=== PATIENT | male | born 1955 | race Caucasian/White ===

== ENCOUNTER → 2018-03-03 16:33 | Outpatient (CLI) | payer MEDICAID ==
[~2018-03-03 16:33] MED LIST: ALEVE220 MG PO; ASPERCREME 5 OZ5 OZ TOPICAL; AXIRON30 MG/1.5; CYCLOBENZAPRINE10 MG PO; CYMBALTA30 MG PO; ELIQUIS2.5 MG PO; FLUTICASONE PRO16 GM NASAL; MOBIC7.5 MG PO; NASACORT10.8 ML NASAL; NORCO 7.5/325 T1 TA1 PO; OXYCODONE-APAP1 TAB PO; SYNTHROID50 MCG PO; VENTOLIN HFA18 GM INH; XALATAN 0.0052.5 ML EACH EYE; ZESTRIL40 MG PO; ZYLOPRIM300 MG PO; ZYRTEC10 MG PO
[2018-03-29 11:04] VITALS: BMI 32.0
== END | disposition home or self-care (01) ==
LOC: D.LABREF 16:33
DX: M17.11 Unilateral primary osteoarthritis, right knee (principal); Z11.8 Encounter for screening for other infectious and parasitic diseases

== ENCOUNTER 2018-03-23 10:00 | Inpatient (IN) | payer MEDICAID ==
[~2018-03-23] VITALS: Ht 172.7 cm; Wt 95.7 kg
--- NOTE | ~2018-03-23 | MORECARE ---
CASE MANAGEMENT DISCHARGE SUMMARY PATIENT: DESI MCMANUS UNIT: [id number] ADM DATE: 03/28/18 AGE: 62 : 54 SEX: M ROOM/BED: D.2210 AUTHOR: SILVINO,DOC PHYSICIAN: REFERRING PHYSICIAN: TALON LEWIS MD DATE OF SERVICE: 03/30/18 Discharge Plan Patient Name: DESI MCMANUS Facility: [facility]:[place] : 1955 Planned Disposition: Home Anticipated Discharge Date: Discharge Date: Expected LOS: Initial Reviewer: [email or web address] Initial Review Date: 03/28/2018 Generated: 03/30/18 11:25 am Comments DCP- Discharge Planning Updated by [email or web address]: Stacy Watson on 03/30/18 9:[address] Patient is discharging home today. OTR COMPANY DRIVER, BSC, and walker will be delivered to patient by [employer]. I spoke with Ronna. Patient is set up for OP PT at [facility] . Patient's first appointment is for WednesdayApr 01 at 8:30 am. Script for PT is given to patient and I also faxed to them. I spoke with Staci. CM will continue to follow and assist with DC planning. DCP- Discharge Planning Updated by [email or web address]: Stacy Watson on 03/29/18 3:[address] Patient Name: DESI MCMANUS Admission Status: Elective Accout number: [id number] Admission Date: 03-28-2018 : 1955 Admission Diagnosis: Attending: TALON LEWIS Current LOS: 1 Anticipated DC Date: Planned Disposition: Home [place] Insurance: [place] PRIVATE OPT[place] [facility] Discharge Planning Comments: CM met with patient to assess discharge planning needs. Patient lives in [place]. His will be the one to drive him home. He plans on doing out patient rehab at [facility] [phone] He is currently a patient there. He will need a CPM, Walker and BSC when he is discharged home. There are 4 steps to enter in his home. CM will continue to follow and assist with DC planning needs. Marble Coper: Stacy Watson DCPIA - Discharge Planning Initial Assessment Updated by [email or web address]: Stacy Watson on 03/29/18 4:02 pm * Is the patient Alert and Oriented? Yes * How many steps to enter\exit or inside your home? * PCP Bebeto Gandara ([place]) * Pharmacy [facility] * Preadmission Environment Home with Family * ADLs Independent * Equipment None * List name and contact numbers for known caregivers / representatives who currently or will assist patient after discharge: RAEANN MCMANUS [phone] * Verbal permission to speak to the caregivers and representatives has been obtained from the patient. Yes * Community resources currently utilized None * Additional services required to return to the preadmission environment? Yes * Can the patient safely return to the preadmission environment? Yes * Has this patient been hospitalized within the prior 30 days at any hospital? No Last DP export: 03/29/18 3:12 p Patient Name: DESI MCMANUS Page 87420 at 1025 All edits/amendments must be made on the electronic document DICTATION DATE: 03/30/18 1025 HISTOTECHNOLOGIST SUPERVISOR: CHRIST 03/30/18 1025 RPT#: [id number] DC DATE: STATUS: ADM IN [facility] [address] [place] [address] END OF REPORT
--- NOTE | ~2018-03-23 | MORECARE ---
CASE MANAGEMENT DISCHARGE SUMMARY PATIENT: DESI MCMANUS UNIT: [id number] ADM DATE: 03/28/18 AGE: 62 : 53 SEX: M ROOM/BED: D.2210 AUTHOR: CRISTINE DUBOIS PHYSICIAN: REFERRING PHYSICIAN: TALON LEWIS MD DATE OF SERVICE: 03/29/18 Discharge Plan Patient Name: DESI MCMANUS [facility] [facility] 1955 Planned Disposition: Home Anticipated Discharge Date: Discharge Date: Expected LOS: Initial Reviewer: [email or web address] Initial Review Date: 03/28/2018 Generated: 03/29/18 5:02 pm DCPIA - Discharge Planning Initial Assessment Updated by [email or web address]: Stacy Watson on 03/29/18 4:02 pm * Is the patient Alert and Oriented? Yes * How many steps to enter\exit or inside your home? * PCP Bebeto Gandara ([place]) * Pharmacy [facility] * Preadmission Environment Home with Family * ADLs Independent * Equipment None * List name and contact numbers for known caregivers / representatives who currently or will assist patient after discharge: RAEANN MCMANUS [phone] * Verbal permission to speak to the caregivers and representatives has been obtained from the patient. Yes * Community resources currently utilized None * Additional services required to return to the preadmission environment? Yes * Can the patient safely return to the preadmission environment? Yes * Has this patient been hospitalized within the prior 30 days at any hospital? No Patient Name: DESI MCMANUS Page 51617 at 1602 All edits/amendments must be made on the electronic document DICTATION DATE: 03/29/18 1602 BEHAVIORAL SPECIALIST: CHRIST 03/29/18 1602 RPT#: [id number] DC DATE: STATUS: ADM IN [facility] [address] [place] [address] END OF REPORT
--- NOTE | ~2018-03-23 | MORECARE ---
CASE MANAGEMENT DISCHARGE SUMMARY PATIENT: DESI MCMANUS UNIT: [id number] ADM DATE: 03/28/18 AGE: 62 : 53 SEX: M ROOM/BED: D.2210 AUTHOR: SILVINO,DOC PHYSICIAN: REFERRING PHYSICIAN: TALON LEWIS MD DATE OF SERVICE: 04/04/18 Discharge Plan Patient Name: DESI MCMANUS Facility: [facility]:[place] : 1955 Planned Disposition: Home Anticipated Discharge Date: Discharge Date: 03/30/2018 Expected LOS: 0 Initial Reviewer: [email or web address] Initial Review Date: 03/28/2018 Generated: 04/04/18 10:24 am Comments DCP- Discharge Planning Updated by [email or web address]: Stacy Watson on 03/30/18 9:[address] Patient is discharging home today. WELDING EQUIPMENT REPAIRER SUPERVISOR, BSC, and walker will be delivered to patient by [employer]. I spoke with Ronna. Patient is set up for OP PT at [facility] . Patient's first appointment is for WednesdayApr 01 at 8:30 am. Script for PT is given to patient and I also faxed to them. I spoke with Staci. CM will continue to follow and assist with DC planning. DCP- Discharge Planning Updated by [email or web address]: Stacy Watson on 03/29/18 3:[address] Patient Name: DESI MCMANUS Admission Status: Elective Accout number: [id number] Admission Date: 03-28-2018 : 1955 Admission Diagnosis: Attending: TALON LEWIS Current LOS: 1 Anticipated DC Date: Planned Disposition: Home Primary Insurance: [place] PRIVATE OPTIONS [place] Discharge Planning Comments: CM met with patient to assess discharge planning needs. Patient lives in [place]. His will be the one to drive him home. He plans on doing out patient rehab at [facility] [phone] He is currently a patient there. He will need a CPM, Walker and BSC when he is discharged home. There are 4 steps to enter in his home. CM will continue to follow and assist with DC planning needs. Loading Inspector: Stacy Watson DCPIA - Discharge Planning Initial Assessment Updated by [email or web address]: Stacy Watson on 03/29/18 4:02 pm * Is the patient Alert and Oriented? Yes * How many steps to enter\exit or inside your home? * PCP Bbeeto Gandara ([place]) * Pharmacy [facility] * Preadmission Environment Home with Family * ADLs Independent * Equipment None * List name and contact numbers for known caregivers / representatives who currently or will assist patient after discharge: RAEANN MCMANUS [phone] * Verbal permission to speak to the caregivers and representatives has been obtained from the patient. Yes * Community resources currently utilized None * Additional services required to return to the preadmission environment? Yes * Can the patient safely return to the preadmission environment? Yes * Has this patient been hospitalized within the prior 30 days at any hospital? No Last DP export: 03/30/18 9:25 a Patient Name: DESI MCMANUS Page 02162 at 0924 All edits/amendments must be made on the electronic document DICTATION DATE: 04/04/18922 ORGAN PIPE MAKER METAL: CHRIST 04/04/18922 RPT#: [id number] DC DATE:03/30/18 STATUS: DIS IN [facility] [address] [place] [address] END OF REPORT
--- NOTE | ~2018-03-23 | OP ---
PATIENT NAME: DESI MCMANUS MEDICAL RECORD: [id number] :53 LOCATION:D.MS [address]10 ADMISSION DATE:03/28/18 SURGEON: TALON LEWIS MD DATE OF OPERATION: 03/28/2018 PREOPERATIVE DIAGNOSIS: Degenerative arthritis, right knee. POSTOPERATIVE DIAGNOSIS: Degenerative arthritis, right knee. PROCEDURE: Right total knee arthroplasty. SURGEON: Talon Lewis MD DRILLER'S ASSISTANT: Bruce Decker APN INTRAOPERATIVE COMPLICATIONS: None. SUMMARY OF PATHOLOGIC FINDINGS: The patient had basically bicompartmental osteoarthritis with full thickness articular surface defects on both medial and lateral femoral condyle. Patellofemoral joint was clean; however, the patella was not resurfaced. IMPLANTS USED: Maxwell triathlon total knee arthroplasty size 6, press fit distal femur size 5, press fit tibial component size 9, X3 polyethylene weightbearing insert. OPERATIVE SUMMARY IN DETAIL: After obtaining the appropriate preoperative orthopedic surgery consent as well as anesthetic consultation, evaluation and clearance, the patient was brought to the operating room and placed on the operating room table in supine position. After general laryngeal mask airway was administered, tourniquet was placed over the proximal aspect of the right lower extremity. Right lower extremity was then prepped and draped in routine sterile fashion. The leg was elevated and exsanguinated and the tourniquet was inflated to 350 mmHg. Midline incision was taken down for paramedian arthrotomy. Patella was everted. Soft tissue excision was done in the usual fashion as part of the case, which was done by Bruce Decker APN. Distal intramedullary guide hole was created followed by a distal femoral cut. This was then followed by complete exposure of the proximal tibia. Further soft tissue was followed by intramedullary guided cut of the proximal tibia. Appropriate measurements were taken. Chamfer cuts were made. Having completed the chamfer cuts, final trials were put into place, taken through range of motion that corresponded to the above final implants. Final distal femoral preparations were made followed by a final proximal tibial preparations. Copious irrigation was followed by implantation of the press-fit tibia and polyethylene and the press-fit femur. The knee was taken through range of motion and found to be stable in flexion, extension as well as mid flexion with good patellar tracking. Further irrigation was followed by closure by Bruce Decker APN including the paramedian arthrotomy with #2 Ethibond followed by #1 Vicryl, 2-0 Vicryl and skin lola. Sterile dressings were applied. Please note that in the knee prior to final closure was placed a gram of vancomycin, a gram of tobramycin, and TXA. All final needle and sponge counts were correct. TRANSINT:[id number] Voice Confirmation ID: [id number] DOCUMENT ID: [id number] OPERATIVE REPORT [id number] DESI MCMANUS MD, TALON THOMAS at 1305 CC: [id number] DICTATION DATE: 03/28/18 0908 VETERANS SERVICE OFFICER: 03/28/18 1029 ADM IN [facility] [address] [place] [address]
--- NOTE | ~2018-03-23 | MORECARE ---
CASE MANAGEMENT DISCHARGE SUMMARY PATIENT: DESI MCMANUS UNIT: [id number] ADM DATE: 03/28/18 AGE: 62 : 53 SEX: M ROOM/BED: D.2210 AUTHOR: SILVINO,DOC PHYSICIAN: REFERRING PHYSICIAN: TALON LEWIS MD DATE OF SERVICE: 03/29/18 Discharge Plan Patient Name: DESI MCMANUS Facility: [facility]:[place] : 1955 Planned Disposition: Home Anticipated Discharge Date: Discharge Date: Expected LOS: Initial Reviewer: [email or web address] Initial Review Date: 03/28/2018 Generated: 03/29/18 5:12 pm Comments DCP- Discharge Planning Updated by [email or web address]: Stacy Watson on 03/29/18 3:[address] Patient Name: DESI MCMANUS Admission Status: Elective Accout number: [id number] Admission Date: 03-28-2018 : 1955 Admission Diagnosis: Attending: TALON LEWIS Current LOS: 1 Anticipated DC Date: Planned Disposition: Home Primary Insurance: [place] PRIVATE OPTIONS [place] Discharge Planning Comments: CM met with patient to assess discharge planning needs. Patient lives in [place]. His will be the one to drive him home. He plans on doing out patient rehab at [facility] [phone] He is currently a patient there. He will need a CPM, Walker and BSC when he is discharged home. There are 4 steps to enter in his home. CM will continue to follow and assist with DC planning needs. Bessemer Regulator: Stacy Watson DCPIA - Discharge Planning Initial Assessment Updated by [email or web address]: Stacy Watson on 03/29/18 4:02 pm * Is the patient Alert and Oriented? Yes * How many steps to enter\exit or inside your home? * PCP Bebeto Gandara ([place]) * Pharmacy [facility] * Preadmission Environment Home with Family * ADLs Independent * Equipment None * List name and contact numbers for known caregivers / representatives who currently or will assist patient after discharge: RAEANN MCMANUS [phone] * Verbal permission to speak to the caregivers and representatives has been obtained from the patient. Yes * Community resources currently utilized None * Additional services required to return to the preadmission environment? Yes * Can the patient safely return to the preadmission environment? Yes * Has this patient been hospitalized within the prior 30 days at any hospital? No Last DP export: 03/29/18 3:02 p Patient Name: DESI MCMANUS Page 15101 at 1612 All edits/amendments must be made on the electronic document DICTATION DATE: 03/29/181610 CABLE TELEVISION INSTALLER: CHRIST 03/29/181610 RPT#: [id number] DC DATE: STATUS: ADM IN [facility] [address] [place] [address] END OF REPORT
[~2018-03-23 10:00] MED LIST changes: -ELIQUIS2.5 MG PO; -OXYCODONE-APAP1 TAB PO
[2018-03-23 11:52] LABS: APPEARANCE CLEAR (CLEAR); BILIRUBIN NEGATIVE (NEGATIVE); COLOR YELLOW (YELLOW); GLUCOSE 250 mg/dL (NEGATIVE); KETONE SMALL mg/dL (NEGATIVE); NITRITE NEGATIVE (NEGATIVE); PROTEIN NEGATIVE (NEGATIVE); SPECIFIC GRAVITY 1.015 (1.005-1.020)
[2018-03-23 11:53] LABS: BASOPHILS 0.5 % (0-2); EOSINOPHILS 4.9 % (0-7); HEMATOCRIT 50.9 % (42.0-54.0); HEMOGLOBIN 16.7 g/dL (13.5-17.5); IMMATURE GRANULOCYTES 0.3 % (0-5); LYMPHOCYTES 23.8 % (15-50); MCH 28.8 pg (26.0-34.0); MCHC 32.8 g/dL (31.0-37.0); MCV 87.8 fL (80.0-100.0); MONOCYTES 12.3 % (2-11); NEUTROPHILS 58.2 % (40-80); PLATELET COUNT 160 10x3/uL (130-400); RDW 14.8 % (11.5-14.5); WBC 5.8 10x3/uL (4.8-10.8)
[2018-03-23 12:10] LABS: ANION GAP 10.4 mmol/L (8-16); CALCIUM 9.4 mg/dL (8.5-10.1); CARBON DIOXIDE 32.4 mmol/L (21.0-32.0); CREATININE - SERUM 1.4 mg/dL (0.6-1.3); POTASSIUM - SERUM 4.8 mmol/L (3.5-5.1)
[2018-03-23 12:37] LABS: APTT 27.6 SECONDS (22.8-39.4)
[2018-03-23 12:39] LABS: INR 0.94 (0.85-1.17); PROTIME 12.2 SECONDS (11.6-15.0)
[2018-03-28] VITALS (12 sets, daily range): BP systolic 99–131; BP diastolic 69–88; BMI 30.4; BMI 32.1
[2018-03-29] VITALS: BP 103/64
[2018-03-29 04:00] VITALS: BP 100/71
[2018-03-29 06:12] LABS: HEMATOCRIT 45.1 % (42.0-54.0); HEMOGLOBIN 14.4 g/dL (13.5-17.5); MCH 28.5 pg (26.0-34.0); MCHC 31.9 g/dL (31.0-37.0); MCV 89.1 fL (80.0-100.0); RBC 5.06 10x6/uL (4.20-6.10); RDW 15.4 % (11.5-14.5); WBC 10.4 10x3/uL (4.8-10.8)
[2018-03-29 08:30] VITALS: BP 105/70
[2018-03-29 11:04] VITALS: Ht 172.7 cm; Wt 95.7 kg
[2018-03-29 12:45] VITALS: BP 121/76
[2018-03-29 16:22] VITALS: BP 118/76
[2018-03-29 20:41] VITALS: BP 131/75
[2018-03-30 04:52] VITALS: BP 126/80
[2018-03-30 05:36] LABS: HEMATOCRIT 44.5 % (42.0-54.0); HEMOGLOBIN 14.3 g/dL (13.5-17.5); MCH 28.2 pg (26.0-34.0); MCHC 32.1 g/dL (31.0-37.0); MCV 87.8 fL (80.0-100.0); MEAN PLATELET VOLUME 11.7 fL (7.4-10.4); RBC 5.07 10x6/uL (4.20-6.10); RDW 15.5 % (11.5-14.5)
[2018-03-30 05:42] LABS: WBC 7.6 10x3/uL (4.8-10.8)
[2018-03-30] MEDS ORDERED: OXYCODONE-APAP1 TAB PO (08:55)
[2018-03-30] MEDS ORDERED: ELIQUIS2.5 MG PO (08:55)
[2018-03-30 09:06] VITALS: BP 142/92
[2018-03-30 13:14] VITALS: BP 138/83
== END 2018-03-30 14:35 | disposition home or self-care (01) | DRG 470 ==
LOC: D.MS 03-28 05:05 → D.SDCHOLD 03-28 05:05 → D.MS 03-28 09:38 → D.SDCHOLD 03-28 10:00 → D.MS 03-30 14:35
PROVIDERS: Orthopaedic Surgery
PROC: 0SRC0JA Replacement of Right Knee Joint with Synthetic Substitute, Uncemented, Open Approach (ICD-10-PCS; principal; 2018-03-28 07:30)
DX: M17.11 Unilateral primary osteoarthritis, right knee (principal); I10 Essential (primary) hypertension; J44.9 Chronic obstructive pulmonary disease, unspecified; Z87.891 Personal history of nicotine dependence

== ENCOUNTER → 2019-02-09 07:33 | Outpatient (CLI) | payer MEDICAID ==
[2018-03-29 11:04] VITALS: BMI 32.0
[~2019-02-09 07:33] MED LIST changes: +ELIQUIS2.5 MG PO; +OXYCODONE-APAP1 TAB PO
== END | disposition home or self-care (01) ==
LOC: D.NM 07:33
PROVIDERS: ATTEND Clinical Nurse Specialist Family Health
DX: M25.561 Pain in right knee (principal)

== ENCOUNTER → 2019-02-16 17:11 | Outpatient (CLI) | payer MEDICAID ==
[2018-03-29 11:04] VITALS: BMI 32.0
[2019-02-16 17:35] LABS: BASOPHILS 0.5 % (0-2); EOSINOPHILS 7.8 % (0-7); HEMATOCRIT 55.1 % (42.0-54.0); HEMOGLOBIN 18.3 g/dL (13.5-17.5); IMMATURE GRANULOCYTES 0.3 % (0-5); LYMPHOCYTES 18.3 % (15-50); MCH 30.8 pg (26.0-34.0); MCHC 33.2 g/dL (31.0-37.0); MCV 92.8 fL (80.0-100.0); MEAN PLATELET VOLUME 12.7 fL (7.4-10.4); MONOCYTES 6.1 % (2-11); RBC 5.94 10x6/uL (4.20-6.10); WBC 6.6 10x3/uL (4.8-10.8)
[2019-02-16 17:38] LABS: PLATELET COUNT 190 10x3/uL (130-400)
[2019-02-16 18:19] LABS: ERYTHROCYTE SEDIMENTATION RATE 2 mm/hr (0-20)
== END | disposition home or self-care (01) ==
LOC: D.LABREF 17:11
PROVIDERS: ATTEND Clinical Nurse Specialist Family Health
DX: M25.561 Pain in right knee (principal)

== ENCOUNTER 2019-02-17 17:14 | Inpatient (IN) | payer MEDICAID ==
[~2019-02-17] VITALS: Ht 172.7 cm; Wt 88.5 kg
[2019-03-07] MEDS ORDERED: ASPIRIN EC81 M1 PO (16:53)
[2019-03-08] MEDS ORDERED: HYDROCODONE-A1 UDTA2 PO (11:35)
[2019-03-08] MEDS ORDERED: BIOFREEZE118 ML TOPICAL (11:37)
[2019-03-08] MEDS ORDERED: BENADRYL25 MG PO (11:40)
[2019-03-08] MEDS ORDERED: CENTRUM MEN'S1 EACH PO (11:40)
[2019-03-08] MEDS ORDERED: OSTEO BI-FLEX1 EAC1 PO (11:41)
[2019-03-08] MEDS ORDERED: COLACE100 MG PO (11:41)
[2019-03-08 11:42] LABS: APPEARANCE CLEAR (CLEAR); BILIRUBIN NEGATIVE (NEGATIVE); COLOR YELLOW (YELLOW); GLUCOSE NEGATIVE (NEGATIVE); KETONE NEGATIVE (NEGATIVE); NITRITE NEGATIVE (NEGATIVE); PROTEIN NEGATIVE (NEGATIVE); UROBILINOGEN NORMAL (NORMAL)
[2019-03-08] MEDS ORDERED: MUPIROCIN22 GM TOPICAL (11:42)
[2019-03-08 11:44] LABS: BASOPHILS 0.4 % (0-2); EOSINOPHILS 5.5 % (0-7); HEMATOCRIT 47.2 % (42.0-54.0); HEMOGLOBIN 15.5 g/dL (13.5-17.5); IMMATURE GRANULOCYTES 0.5 % (0-5); LYMPHOCYTES 17.8 % (15-50); MCH 30.5 pg (26.0-34.0); MCHC 32.8 g/dL (31.0-37.0); MCV 92.7 fL (80.0-100.0); MEAN PLATELET VOLUME 11.3 fL (7.4-10.4); MONOCYTES 8.3 % (2-11); NEUTROPHILS 67.5 % (40-80); PLATELET COUNT 165 10x3/uL (130-400); RBC 5.09 10x6/uL (4.20-6.10); RDW 14.7 % (11.5-14.5); WBC 7.3 10x3/uL (4.8-10.8)
[2019-03-08 11:53] LABS: PROTIME 12.7 SECONDS (11.6-15.0)
[2019-03-08 12:05] LABS: ANION GAP 8.7 mmol/L (8-16); CARBON DIOXIDE 33.2 mmol/L (21.0-32.0); CREATININE - SERUM 1.4 mg/dL (0.6-1.3); POTASSIUM - SERUM 4.9 mmol/L (3.5-5.1)
[2019-03-13] VITALS (11 sets, daily range): BP systolic 91–120; BP diastolic 48–83; BMI 29.7
[2019-03-13] MEDS ORDERED: LIPITOR20 MG PO (06:59)
[2019-03-13] MEDS ORDERED: K-TAB10 MEQ PO (07:00)
[2019-03-13] MEDS ORDERED: FUROSEMIDE20 MG PO (07:00)
--- NOTE | 2019-03-13 10:53 | NUR ---
RIGHT KNEE PREPPED FROM TOURNIQUET TO TOES CIRCUMFERENTIALLY WITH HIBICLENS AND ALCOHOL AND THEN CHLORAPREP. LAMINAR FLOW NOT IN USE VANCOMYCIN 1 GM AND TOBRAMYCIN 1.2 GM APPLIED TO WOUND BED TRAFFIC MONITORED IN AND OUT OF ROOM AND KEPT TO A MINIMUM
--- NOTE | 2019-03-13 11:51 | NUR ---
PT ADMITED TO ROOM 2208 VIA BED FROM POST OP. ALERT AND ORIENTED. DENIES PAIN AT THIS TIME. AT BEDSIDE. IV TO LEFT HAND WITH LR @ KVO. RESP EVEN AND UNLABORED. KESHAWN WRAP TO RIGHT LOWER EXTREMITY, C/D/I. PPPX4. SCD'S PLACED AT THIS TIME. ORIENTED TO BED CONTROLS AND CL DENIES FURTHER QUESTIONS AT THIS TIME. DENIES FURTHER NEEDS AT THIS TIME. CONTINUE TO MONITOR.
--- NOTE | 2019-03-13 20:00 | NUR ---
A/O WITH NO SIGNS OF ACUTE DISTRESS. IV TO THE LT HAND WITH NO REDNESS OR SWELLING AND NV @2L. DRESSING TO THE RT KNEE WITH PULSE NOTED IN ANKLE. HELD BP MEDICATION DUE TO BP OF 94/48. WILL CONTINUE MONITOR AND FOLLOW PLAN OF CARE.
[2019-03-14] VITALS: BP 95/48
--- NOTE | 2019-03-14 03:21 | NUR ---
BLADDER SCANNED X3 DUE TO NO OUTPUT SINCE SHIFT CHANGE. EACH RESULT SHOWS 217ML. REPORTS THAT HE HAD 200ML OF OUTPUT AFTER SX DURING DAY SHIFT. HAVE BEEN ENCOURAGING FLUIDS ALL NIGHT WHEN AWAKE. WILL CONTINUE TO MONITOR.
[2019-03-14 04:00] VITALS: BP 92/58
[2019-03-14 06:03] LABS: HEMATOCRIT 43.9 % (42.0-54.0); HEMOGLOBIN 14.1 g/dL (13.5-17.5); MCHC 32.1 g/dL (31.0-37.0); MCV 93.4 fL (80.0-100.0); MEAN PLATELET VOLUME 12.2 fL (7.4-10.4); RBC 4.7 10x6/uL (4.20-6.10); RDW 15.9 % (11.5-14.5); WBC 8.9 10x3/uL (4.8-10.8)
--- NOTE | 2019-03-14 07:30 | NUR ---
PATIENT CAME OUT STATES PT BLEEDING. SOME BLOOD WAS FOUND AROUND THE TOP OF THE DRESSING. PATIENT STATES HE WAS BENDING HIS KNEE. AND WAS HOPING TO GET A CPM MACHINE. I ADDED AN ABD PAD TO CATCH ANY EXTRA DRAINAGE AND REWRAPPED THE KESHAWN WRAP. CL IN REACH. TRYING TO VOID IN URINAL. WCTM
[2019-03-14 08:26] VITALS: BP 103/58
[2019-03-14 09:31] VITALS: Ht 172.7 cm; Wt 88.5 kg
[2019-03-14 12:24] VITALS: BP 113/63
--- NOTE | 2019-03-14 15:22 | NUR ---
TWO ICE PACKS AND INCENTIVE SPIROMETER PROVIDED. PATIENT SHOWED PROPER DEMONSTRATION OF DEVICE. INSTRUCTED TO USE IT 2-3 TIMES A COMMERCIAL BREAK. OR 10 TIMES AN HOUR. SPILL CLEANED UP. NO FURTHER NEEDS AT THIS TIME. CL IN REACH. WCTM
[2019-03-14 17:19] VITALS: BP 106/67
[2019-03-14 19:00] VITALS: BP 126/72
--- NOTE | 2019-03-14 21:00 | NUR ---
A/O WITH NO SIGNS OF DISTRESS. IV TO THE LT HAND WITH NO REDNESS OR SWELLING. KESHAWN WRAP TO THE RT LEG, CDI WITH PULSE NOTED TO ANKLE. ICE PACK TO RT LEG. NC @2L. DENIES NO OTHER NEEDS AT THIS TIME. CONTINUE PLAN OF CARE.
[2019-03-15] VITALS: BP 122/78
[2019-03-15 04:00] VITALS: BP 126/79
[2019-03-15 06:18] LABS: HEMATOCRIT 43.5 % (42.0-54.0); HEMOGLOBIN 14.4 g/dL (13.5-17.5); MCH 31.2 pg (26.0-34.0); MCHC 33.1 g/dL (31.0-37.0); MCV 94.2 fL (80.0-100.0); MEAN PLATELET VOLUME 12.3 fL (7.4-10.4); RBC 4.62 10x6/uL (4.20-6.10); RDW 16.1 % (11.5-14.5)
[2019-03-15 06:37] LABS: WBC 5.4 10x3/uL (4.8-10.8)
--- NOTE | 2019-03-15 08:20 | NUR ---
PATIENT JUST OFF CPM. IN ROOM. CL IN REACH. WCTM
[2019-03-15 08:30] VITALS: BP 126/93
[2019-03-15] MEDS ORDERED: ELIQUIS2.5 MG PO (08:38)
[2019-03-15] MEDS ORDERED: PERCOCET 10-321 EAC1 PO (08:39)
--- NOTE | 2019-03-15 11:33 | MORECARE ---
CASE MANAGEMENT DISCHARGE SUMMARY PATIENT: DESI MCMANUS UNIT: [id number] ADM DATE: 03/13/19 AGE: 63 : 53 SEX: M ROOM/BED: D.2208 AUTHOR: CRISTINE DUBOIS PHYSICIAN: REFERRING PHYSICIAN: TALON LEWSI MD DATE OF SERVICE: 03/15/19 Discharge Plan Patient Name: DESI MCMANUS [facility] [facility] 1955 Planned Disposition: Home or Self Care Anticipated Discharge Date: Discharge Date: Expected LOS: Initial Reviewer: [email or web address] Initial Review Date: 03/13/2019 Generated: 03/15/19 12:33 pm DCPIA - Discharge Planning Initial Assessment Updated by [email or web address]: Stacy Watson on 03/15/19 11:31 am * Is the patient Alert and Oriented? Yes * How many steps to enter\exit or inside your home? * PCP DR JEFFREY * Pharmacy [facility] * Preadmission Environment Home with Family * ADLs Independent * Equipment Bedside Commode Cane Rolling Walker * Other Equipment CPM (ORDERED BY DR PLATT OFFICE) * List name and contact numbers for known caregivers / representatives who currently or will assist patient after discharge: RAEANN () [phone] * Verbal permission to speak to the caregivers and representatives has been obtained from the patient. Yes * Community resources currently utilized None * Additional services required to return to the preadmission environment? Yes * Can the patient safely return to the preadmission environment? Yes * Has this patient been hospitalized within the prior 30 days at any hospital? No Patient Name: DESI MCMANUS Page 70823 at 1133 All edits/amendments must be made on the electronic document DICTATION DATE: 03/15/19 113 BOBBIN WASHER: CHRIST 03/15/19 1132 RPT#: [id number] DC DATE: STATUS: ADM IN [facility] [address] [place] [address] END OF REPORT
--- NOTE | 2019-03-15 11:40 | MORECARE ---
CASE MANAGEMENT DISCHARGE SUMMARY PATIENT: DESI MCMANUS UNIT: [id number] ADM DATE: 03/13/19 AGE: 63 : 53 SEX: M ROOM/BED: D.2208 AUTHOR: SILVINO,DOC PHYSICIAN: REFERRING PHYSICIAN: TALON LEWIS MD DATE OF SERVICE: 03/15/19 Discharge Plan Patient Name: DESI MCMANUS Facility: [facility]:[place] : 1955 Planned Disposition: Home or Self Care Anticipated Discharge Date: Discharge Date: Expected LOS: Initial Reviewer: [email or web address] Initial Review Date: 03/13/2019 Generated: 03/15/19 12:40 pm Comments DCP- Discharge Planning Updated by [email or web address]: Stacy Watson on 03/15/19 10:[address] Patient Name: DESI MCMANUS Admission Status: Elective Accout number: [id number] Admission Date: 03-13-2019 : 1955 Admission Diagnosis: Attending: TALON LEWIS Current LOS: 2 Anticipated DC Date: Planned Disposition: Home or Self Care Primary Insurance: [place] PRIVATE OPTIONS [place] Discharge Planning Comments: CM met with patient to complete initial dc planning assessment. CM educated patient on the CM role and verbal consent given by patient to complete assessment. Patient lives at home with his where he is independent with his care. At discharge patient plans to return home and feels this is a safe discharge. CM discussed availability of home health, rehab services, and medical equipment. He has a walker, cane and BSC. Dr Lewis has ordered him a CPM from [employer]. He would like to do his OP PT at [facility] in [facility]. I called them and made his appointment for WednesdayMar 21 @ 11:00 I spoke with Mati and faxed the order to her at [phone]. A copy was also given to patient with his discharge packet. Patient denied known discharge needs at this time. CM will continue to follow and will assist as needed with dc plans/needs. Roller Coaster Engineer: Stacy Watson DCPIA - Discharge Planning Initial Assessment Updated by [email or web address]: Stacy Watson on 03/15/19 11:31 am * Is the patient Alert and Oriented? Yes * How many steps to enter\exit or inside your home? * PCP DR JEFFREY * Pharmacy [facility] * Preadmission Environment Home with Family * ADLs Independent * Equipment Bedside Commode Cane Rolling Walker * Other Equipment CPM (ORDERED BY DR PLATT OFFICE) * List name and contact numbers for known caregivers / representatives who currently or will assist patient after discharge: RAEANN () [phone] * Verbal permission to speak to the caregivers and representatives has been obtained from the patient. Yes * Community resources currently utilized None * Additional services required to return to the preadmission environment? Yes * Can the patient safely return to the preadmission environment? Yes * Has this patient been hospitalized within the prior 30 days at any hospital? No Last DP export: 03/15/19 10:33 Patient Name: DESI MCMANUS Page 60335 at 1140 All edits/amendments must be made on the electronic document DICTATION DATE: 03/15/19 1140 BACK TENDER PULP DRIER: CHRIST 03/15/19 1140 RPT#: [id number] DC DATE: STATUS: ADM IN [facility] [address] [place] [address] END OF REPORT
--- NOTE | 2019-03-15 12:31 | NUR ---
DISCHARGE INSTRUCTIONS GIVEN. PATIENT VERBALIZED UNDERSTANDING. WAITING ON AVAILABILITY OF TORADOL BEFORE LEAVING. WCTM
--- NOTE | 2019-03-15 14:02 | NUR ---
PATIENT ASSISTED TO FRONT DOOR.
--- NOTE | 2019-03-16 09:32 | MORECARE ---
CASE MANAGEMENT DISCHARGE SUMMARY PATIENT: DESI MCMANUS UNIT: [id number] ADM DATE: 03/13/19 AGE: 63 : 53 SEX: M ROOM/BED: D.2208 AUTHOR: SILVINODOC PHYSICIAN: REFERRING PHYSICIAN: TALON LEWIS MD DATE OF SERVICE: 03/16/19 Discharge Plan Patient Name: DESI MCMANUS Facility: [facility]:[place] : 1955 Planned Disposition: Home or Self Care Anticipated Discharge Date: Discharge Date: 03/15/2019 Expected LOS: 0 Initial Reviewer: [email or web address] Initial Review Date: 03/13/2019 Generated: 03/16/19 10:31 am Comments DCP- Discharge Planning Updated by [email or web address]: Stacy Watson on 03/15/19 10:[address] Patient Name: DESI MCMANUS Admission Status: Elective Accout number: [id number] Admission Date: 03-13-2019 : 1955 Admission Diagnosis: Attending: TALON LEWIS Current LOS: 2 Anticipated DC Date: Planned Disposition: Home or Self Care Primary Insurance: [place] PRIVATE [employer]IONS [place] Discharge Planning Comments: CM met with patient to complete initial dc planning assessment. CM educated patient on the CM role and verbal consent given by patient to complete assessment. Patient lives at home with his where he is independent with his care. At discharge patient plans to return home and feels this is a safe discharge. CM discussed availability of home health, rehab services, and medical equipment. He has a walker, cane and BSC. Dr Lewis has ordered him a CPM from [employer]. He would like to do his OP PT at [facility] in [facility]. I called them and made his appointment for WednesdayMar 21 @ 11:00 I spoke with Mati and faxed the order to her at [phone]. A copy was also given to patient with his discharge packet. Patient denied known discharge needs at this time. CM will continue to follow and will assist as needed with dc plans/needs. Ground Control Approach Technician: Stacy Watson DCPIA - Discharge Planning Initial Assessment Updated by [email or web address]: Stacy Watson on 03/15/19 11:31 am * Is the patient Alert and Oriented? Yes * How many steps to enter\exit or inside your home? * PCP DR JEFFREY * Pharmacy [facility] * Preadmission Environment Home with Family * ADLs Independent * Equipment Bedside Commode Cane Rolling Walker * Other Equipment CPM (ORDERED BY DR PLATT OFFICE) * List name and contact numbers for known caregivers / representatives who currently or will assist patient after discharge: RAEANN () [phone] * Verbal permission to speak to the caregivers and representatives has been obtained from the patient. Yes * Community resources currently utilized None * Additional services required to return to the preadmission environment? Yes * Can the patient safely return to the preadmission environment? Yes * Has this patient been hospitalized within the prior 30 days at any hospital? No Last DP export: 03/15/19 10:40 Patient Name: DESI MCMANUS Page 45053 at 0932 All edits/amendments must be made on the electronic document DICTATION DATE: 03/16/19930 TABLE ASSEMBLER METAL: CHRIST 03/16/19930 RPT#: [id number] DC DATE:03/15/19 STATUS: DIS IN [facility] [address] [place] [address] END OF REPORT
--- NOTE | 2019-04-17 16:11 | OP ---
PATIENT NAME: DESI MCMANUS MEDICAL RECORD: [id number] :53 LOCATION:[id number] ADMISSION DATE:03/13/19 SURGEON: TALON LEWIS MD DATE OF OPERATION: 03/13/2019 PREOPERATIVE DIAGNOSIS: Painful right total knee. POSTOPERATIVE DIAGNOSIS: Painful right total knee. PROCEDURE: Revision total knee arthroplasty. SURGEON: Talon Lewis MD ANESTHESIA: General. INTRAOPERATIVE COMPLICATIONS: None. SUMMARY OF PATHOLOGIC FINDINGS: The patient's press fit total knee arthroplasty absolutely did not adhere and upon removal, the cuts were essentially still perfect requiring only freshen up cuts and the primary tight knee was cemented back to the distal femur without losing the tibial baseplate or polyethylene. A patelloplasty was performed. OPERATIVE SUMMARY IN DETAIL: After obtaining the appropriate preoperative orthopedic surgery consent as well as anesthetic consultation, evaluation and clearance, the patient was brought to the operating room and placed on the operating table in supine position. After general laryngeal mask airway was administered, a tourniquet was placed about the proximal aspect of the right lower extremity. Right lower extremity was then prepped and draped in routine sterile fashion. The leg was elevated and exsanguinated, tourniquet was inflated to 350 mmHg. Routine midline incision was made over the previous incision, taken down for paramedian arthrotomy. Paramedian arthrotomy was performed. Patella was retracted medially. Distal femur was exposed and with very little effort, the distal femur was removed with zero bone ingrowth and zero bone loss. Having completed this, chamfer cuts were very gently cleaned up with no loss of bone. The patella was then excised for patellar resurfacing and final preparations were made. Trials were undertaken with the size 5 distal femoral trial, felt to be stable in all planes. Having completed this, the patella and the femoral component were cemented into place. All excess cement was removed. After the cement was allowed to harden, knee was taken through a range of motion and found to be stable in all planes. After copious irrigation, the wound was then infiltrated with a gram of vancomycin and gram of tobramycin. Paramedian arthrotomy was closed with #2 Ethibond. This was then followed by #1 Vicryl for skin, 2-0 Vicryl for the skin and skin lola were applied by Bruce Decker APRN. Sterile dressings were applied. The patient was awakened and taken to the recovery room in stable condition. All final needle and sponge counts were correct. TRANSINT:[id number] Voice Confirmation ID: [id number] DOCUMENT ID: [id number] 04/17/2019 Edited for new [place]. OPERATIVE REPORT [id number] DESI MCMANUS MD, TALON THOMAS at 1611 CC: [id number] DICTATION DATE: 03/23/19 1145 ACCESSIONER: 03/23/19 1220 DIS IN 03/15/19 [id number] [id number]
== END 2019-03-15 14:02 | disposition home or self-care (01) | DRG 468 ==
LOC: D.MS 03-13 06:10 → D.SDCHOLD 03-13 06:10 → D.MS 03-13 11:29
PROVIDERS: ADMIT Orthopaedic Surgery; ATTEND Orthopaedic Surgery
PROC: 0SRC0J9 Replacement of Right Knee Joint with Synthetic Substitute, Cemented, Open Approach (ICD-10-PCS; 2019-03-13)
PROC: 0SPC0JZ Removal of Synthetic Substitute from Right Knee Joint, Open Approach (ICD-10-PCS; principal; 2019-03-13 08:45)
DX: T84.84XA Pain due to internal orthopedic prosthetic devices, implants and grafts, initial encounter (principal); T84.032A Mechanical loosening of internal right knee prosthetic joint, initial encounter; I10 Essential (primary) hypertension; J44.9 Chronic obstructive pulmonary disease, unspecified